=== PATIENT | female | born 1975 | race Caucasian/White ===

== ENCOUNTER 2016-11-27 08:37 | Day surgery (SDC) | payer OTHER ==
[2016-11-27] VITALS (12 sets, daily range): BP systolic 98–126; BP diastolic 43–68; PULSE 60–94; RESP 12–16; Ht 147.3 cm; Wt 54.4 kg
[~2016-11-27] VITALS: Ht 147.3 cm; Wt 54.4 kg
[~2016-11-27 08:37] MED LIST: CEFAZOLIN 2 GM/50 ML (PMX) 50 ML IVPB SCH; SOD CHLORIDE 0.9% 1,000 ML IV SCH
[2016-11-27] MEDS ORDERED: TRAM50TA2 PO (10:00)
[2016-11-27] MEDS ORDERED: FENTAnyl 50 MCG/ML VIAL ONE (11:54)
[2016-11-27] MEDS ORDERED: ROCURONIUM 50 MG INJ ONE (11:54)
[2016-11-27] MEDS ORDERED: DEXAMETHASONE 4 MG/ML 1 ML INJ ONE (11:54)
[2016-11-27] MEDS ORDERED: PROPOFOL 20 ML ONE (11:54)
[2016-11-27] MEDS ORDERED: ONDANSETRON 4 MG INJ ONE (11:54)
[2016-11-27] MEDS ORDERED: MIDAZOLAM 1 MG/ML 2 ML INJ ONE (11:54)
[2016-11-27] MEDS ORDERED: PROPOFOL 100 ML ONE (11:54)
[2016-11-27] MEDS ORDERED: HYDROmorphONE (0.2 MG/ML) 10ML SYG IV PRN ×2 (12:30)
[2016-11-27] MEDS ORDERED: DIPHENHYDRAMINE 50 MG INJ IV PRN (12:30)
[2016-11-27] MEDS ORDERED: EPHEDrine SULFATE 50 MG/5 ML SYG IV PRN (12:30)
[2016-11-27] MEDS ORDERED: LABETALOL HCL 20MG INJ IV PRN (12:30)
[2016-11-27] MEDS ORDERED: ONDANSETRON 4 MG INJ IV PRN (12:30)
[2016-11-27] MEDS ORDERED: MIDAZOLAM 1 MG/ML 2 ML INJ IV PRN (12:30)
[2016-11-27] MEDS ORDERED: ALBUTEROL 0.5% (NEB) 2.5 MG/0.5 ML AMP INH ONE (12:30)
[2016-11-27] MEDS ORDERED: EPHEDrine SULFATE 50 MG/5 ML SYG ONE (12:33)
[2016-11-27] MEDS ORDERED: MEPERIDINE 25 MG INJ IV ONE (13:30)
[2016-11-27] MEDS ORDERED: HYDROCODONE/APAP (10/325) TAB PO ONE (13:30)
[2016-11-27] MEDS ORDERED: MEPERIDINE 25 MG INJ ONE (13:31)
[2016-11-27] MEDS: HYDROmorphONE (0.2 MG/ML) 10ML SYG IV PRN ×2 (13:36→13:56)
--- NOTE | 2016-11-27 15:26 | OPR ---
DATE OF OPERATION: 11/27/2016 PREOPERATIVE DIAGNOSIS: Left intergluteal mass, rule out sarcoma. POSTOPERATIVE DIAGNOSIS: Left intergluteal mass, rule out sarcoma. OPERATION PERFORMED: Resection of left gluteal mass. ANESTHESIA: General. ANESTHESIOLOGIST: LUIS MUELLER MD. SURGEON: Conrad Ramos MD. SOUND SYSTEM INSTALLER: KRYSTLE BROUSSARD MD, MD. INDICATIONS FOR PROCEDURE: The patient is a 41-year-old female presenting with an enlarging mass in the left gluteal region. ACT PET scan was performed which revealed a large necrotic mass deep to t he gluteus otto muscle and interdigitating within the fibers of it. The patient was counseled as to need for resection. She consented and was scheduled for surgery. DESCRIPTION OF PROCEDURE: The patient was brought to the operating theater, placed under general en dotracheal tube anesthesia. She was then put in the prone position. The left gluteal region was pr epped and draped in usual sterile fashion. A transverse incision was made directly over the palpabl e mass. Subcutaneous tissue was dissected with cautery until the fibers of the gluteus otto coul d be visualized. The muscle was split in the direction of the fibers, interdigitating deep within t he muscle and extending down to what appeared to be fascia was a large mass with cystic components. It was meticulously dissected from surrounding tissues down to its origin and transected. 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 The mass was then sent fo permanent pathologic analysis. The base where the mass had been transected was further ablated wi th cautery. Wound was irrigated. Minimal bleeding was controlled with cautery. A #10 Portuguese Jacks on-Veliz drain was then brought through the lateral aspect of the left gluteal region, cut to size a nd laid deep within the resection bed. It was secured in place with 2-0 nylon in standard fashion a nd the skin was then reapproximated with 4-0 Vicryl suture in subcuticular fashion. Benzoin and Kleber ri-Strips were applied. Patient tolerated procedure well. Estimated blood loss was 30 mL. There w ere no complications and the patient was transported in stable condition to the recovery room. Dictated By: CONRAD RAMOS MD TL/NTS Conf#: [id number] DID#: [id number]
== END 2016-11-27 16:27 | disposition home or self-care (01) ==
LOC: SDS 08:37
PROVIDERS: ATTEND Surgery Surgical Oncology
DX: D23.5 Other benign neoplasm of skin of trunk (principal)
CPT/HCPCS: 11406; 84703; 88307; 88331; J1100; J1170; J2175; J2250; J2405; J3010

== ENCOUNTER 2016-11-29 20:42 | Inpatient (IN) | payer OTHER ==
[~2016-11-29] VITALS: Ht 147.3 cm; Wt 53.8 kg
[~2016-11-29 20:42] MED LIST changes: -CEFAZOLIN 2 GM/50 ML (PMX) 50 ML IVPB SCH; -SOD CHLORIDE 0.9% 1,000 ML IV SCH; +TRAM50TA2 PO
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
--- NOTE | 2016-11-29 23:46 | RADRPT ---
PROCEDURE: XR Chest. CLINICAL INDICATION: Syncope. TECHNIQUE: Single frontal chest x-ray. COMPARISON: None. FINDINGS: The cardiomediastinal silhouette is unremarkable. The lungs are clear. No focal infiltrate is seen. There is no pleural effusion. There is no pneumothorax. The osseous structures are unremarkable. IMPRESSION: 1. No active disease. RPTAT: HMVK .Bryce Dixon MD, Date Time Electronically viewed and signed by .Bryce Dixon MD, on 11/29/2016 23:46 .K/
[2016-11-30 00:01] LABS: CHLORIDE 99 mmol/L (97-110); SODIUM 138 mmol/L (135-144)
[2016-11-30 00:02] LABS: POTASSIUM 4.3 mmol/L (3.5-5.1)
[2016-11-30 00:04] LABS: ANION GAP 15 (8-16); CARBON DIOXIDE 28 mmol/L (21-31); CREATININE 0.66 mg/dl (0.44-1.00); INR 0.9; PROTIME 12.1 Sec (12.2-14.2); PT RATIO 0.9
[2016-11-30 00:05] LABS: BLOOD UREA NITROGEN 22 mg/dl (7-20); CALCIUM 8.8 mg/dl (8.4-10.2); GLUCOSE 106 mg/dl (70-220); PARTIAL THROMBOPLASTIN TIME 24.4 Sec (25.0-35.0)
[2016-11-30 00:22] LABS: TROPONIN-I < 0.012 ng/ml (0.00-0.12)
[2016-11-30] MEDS ORDERED: SOD CHLORIDE 0.9% 1,000 ML IV ONE (00:30)
[2016-11-30 00:46] LABS: BASOPHILS % 0.4 % (0.0-2.0); EOSINOPHILS # 0.1 10^3/ul (0.0-0.5); EOSINOPHILS % 0.6 % (0.0-7.0); HEMATOCRIT 37.9 % (37.0-47.0); HEMOGLOBIN 12.9 g/dl (12.0-16.0); LYMPHOCYTES # 1.5 10^3/ul (0.8-2.9); LYMPHOCYTES % 16.2 % (15.0-51.0); MEAN CORPUSCULAR HEMOGLOBIN 31.5 pg (29.0-33.0); MEAN CORPUSCULAR VOLUME 92.4 fl (82.0-101.0); MEAN PLATELET VOLUME 9.9 fl (7.4-10.4); MONOCYTE # 0.8 10^3/ul (0.3-0.9); MONOCYTES % 8.9 % (0.0-11.0); NEUTROPHIL # 6.6 10^3/ul (1.6-7.5); NEUTROPHILS % 73.5 % (39.0-77.0); PLATELET COUNT 269 10^3/UL (140-440)
[2016-11-30 00:58] LABS: D-DIMER < 220.00 ng/ml (<460)
--- NOTE | 2016-11-30 00:59 | RADRPT ---
PROCEDURE: CT BRAIN WITHOUT CONTRAST CLINICAL INDICATION: 41-year-old female with syncope. TECHNIQUE: The study was performed utilizing a [employer] VCT 64-slice CT scanner. Direct axia l sections were obtained from the foramen magnum to the vertex without the use of intravenous contra st material. Sagittal and coronal reformations were obtained. Automated exposure control and iterat federica reconstruction techniques were utilized for this examination. The images were viewed on a PACS workstation. CTD/vol = 51.1 mGy; Total Exam DLP = 817.8 mGy-cm. COMPARISON: None. FINDINGS: The ventricles have a normal size, shape and position. There is no evidence for mass effect or midl ine shift. There are no intracranial areas of abnormal attenuation. There is no evidence for acute intra or extra-axial blood. The bony calvarium is intact. The partially visualized paranasal sinuse s and mastoid air cells are without significant abnormal soft tissue. IMPRESSION: Unremarkable noncontrast CT scan of the brain. .Cedrick Little MD, MD Date Time Electronically viewed and signed by .Cedrick Little MD, MD on 11/30/2016 00:59 .M/
[2016-11-30 12:28] VITALS: TEMP 96.7
--- NOTE | 2016-11-30 14:38 | RADRPT ---
PROCEDURE: US Carotids. CLINICAL INDICATION: Syncope TECHNIQUE: Multiple sonographic of the carotid arteries were obtained utilizing sanchez scale imaging . Color and Doppler imaging was performed. The images were reviewed on a PACS workstation. COMPARISON: No prior studies are available for comparison. FINDINGS: Location Right Left CCA 79 cm/sec 112 cm/sec Prox ICA 57 cm/sec 65 cm/sec Mid ICA 80 cm/sec 73 cm/sec Dist ICA 50 cm/sec 97 cm/sec ECA 91 cm/sec 85 cm/sec ICA/CCA 1.0 1.2 Antegrade flow is seen within the vertebral arteries bilaterally. No significant plaque is seen with in the carotid system bilaterally. No hemodynamically significant stenosis or occlusion is identifi ed. IMPRESSION: 1. No evidence for hemodynamically significant stenosis - validated velocity measurements with angio graphic measurements, velocity criteria are extrapolated from diameter data as defined by the Societ y of Radiologists in Ultrasound Consensus Conference Radiology 2003; 229;340-346. This study does i ndirectly reference the measurement of the distal ICA diameter as the denominator for stenosis measu rement. 2. Antegrade flow seen within the vertebral arteries bilaterally. SRU Consensus Conference Criteria for the Diagnosis of Carotid Artery Stenosis Degree of Stenosis, % ICA PSV, cm/sec Plaque Estimate, % ICA/CCA PSV Ratio Normal <125 None <2.0 <50 <125 <50 <2.0 50 69 125-230 >50 2.0-4.0 >70 but less than near occlusion >230 >50 <4.0 Near occlusion High, low, or undetectable Visible Variable Total occlusion Undetectable Visible, no detectable lumen Not applicable *Cartoid artery stenosis: sanchez-scale and Doppler US diagnosis. Society of Radiologists in Ultrasound Consensus Conference. Radiology 2003; 229: 340-346 RPTAT: JJ .Saul Batista MD, Date Time Electronically viewed and signed by .Saul Batista MD, on 11/30/2016 14:38 .A/
[2016-11-30 15:15] VITALS: BP 111/52; RESP 20
[2016-11-30 15:23] VITALS: Ht 147.3 cm; Wt 53.8 kg
[2016-11-30 16:16] VITALS: PULSE 61
[2016-11-30] MEDS ORDERED: ACETAMINOPHEN 325 MG TAB PO PRN ×2 (17:00→19:30)
[2016-11-30] MEDS: SOD CHLORIDE 0.9% 1,000 ML IV SCH (17:23)
[2016-11-30] MEDS: HYDROCODONE/APAP (5/325) TAB PO PRN (18:07)
[2016-11-30] MEDS ORDERED: SOD CHLORIDE 0.9% 1,000 ML IV SCH (19:26)
--- NOTE | 2016-11-30 19:27 | QN ---
Documentation Comment hp done JEN VICTORIA MD Nov 30, 2016 19:27
[2016-11-30] MEDS ORDERED: NACL 0.9% 3 ML SYG IV SCH (19:30)
[2016-11-30] MEDS ORDERED: ONDANSETRON 4 MG INJ IV PRN (19:30)
[2016-11-30] MEDS ORDERED: HYDROCODONE/APAP (5/325) TAB PO PRN (19:30)
[2016-11-30] MEDS ORDERED: DOCUSATE SODIUM 100 MG CAP PO PRN (19:30)
[2016-11-30 20:00] VITALS: BP 113/58; PULSE 63; RESP 20
[2016-11-30 20:52] VITALS: PULSE 62
--- NOTE | 2016-11-30 22:41 | RADRPT ---
Echocardiogram Report ADDENDUM Patient Name: CORDELL MONROE Gender: Female Date: 1975 Study Date: 30-Nov-2016 County Assessor: Jairo Gore [facility] Location: 5564 Ref. Physician: JEN VICTORIA Quality: Adequate Procedures: Transthoracic echocardiogram with complete 2D, M-Mode, and doppler examination. Indications: Syncope. 2D/M Mode Doppler Measurement Value Normal Ranges Measurement Value Normal Ranges LVIDd 2D 4.7 3.5 - 5.6 cm AV Peak Jakob 1.2 m/sec LVIDs 2D 3.3 2.1 - 4.1 cm AV Peak PG 6.0 mmHg LVPWd 2D 0.8 0.6 - 1.1 cm LVOT Peak Jakob 0.7 m/sec IVSd 2D 0.8 0.6 - 1.1 cm LVOT Peak PG 2.0 mmHg AoR Diam 2D 2.6 2.0 - 3.7 cm MV E Peak Jakob 0.8 m/sec EDV 2D 102.6 cm3 MV A Peak Jakob 0.5 m/sec ESV 2D 37.1 cm3 MV E/A 1.5 LA Dimen 2D 2.7 2.3 - 4.0 cm MV Decel Time 195 msec MV Decel Karnes 4 MV E/A 1.5 TR Peak Jakob 2.3 m/sec TR Peak PG 20.3 mmHg RVSP 23.0 mmHg Findings Left Ventricle: Lower limits of normal systolic function. Normal left ventricular cavity size. Normal left ventricular wall thickness. Ejection fraction is visually estimated at 50 %. Tissue Doppler/Mitral Doppler indices are within normal limits. Right Ventricle: Normal right ventricular size. Normal right ventricular systolic function. Left Atrium: The left atrium is normal in size. Right Atrium: The right atrium is normal in size. Mitral Valve: Normal appearance and function of the mitral valve with trace physiologic regurgitation. Aortic Valve: Normal appearance of the aortic valve. No significant aortic stenosis or insufficiency. Tricuspid Valve: Normal appearance of the tricuspid valve. Estimated peak PA systolic pressure 23 mmHg. There is trace tricuspid regurgitation. Pulmonic Valve: Normal pulmonic valve appearance. Pericardium: Normal pericardium with no significant pericardial effusion. Aorta: Normal aortic root. IVC: Normal size and normal respiratory collapse consistent with normal right atrial pressure. Conclusions 1.Lower limits of normal systolic function. Normal left ventricular cavity size. Normal left ventricular wall thickness. Ejection fraction is visually estimated at 50 %. Tissue Doppler/Mitral Doppler indices are within normal limits. 2.Normal appearance and function of the mitral valve with trace physiologic regurgitation. 3.Normal appearance of the tricuspid valve. Estimated peak PA systolic pressure 23 mmHg. There is trace tricuspid regurgitation. Electronically Signed By: Gregorio Tomas 30-Nov-2016 23:10:19 -0800 [ADDENDUM] Patient Name: CORDELL MONROE Study Date: 30-Nov-2016 [id number]
--- NOTE | 2016-11-30 23:12 | CONS ---
DATE OF ADMISSION: 11/30/2016 DATE OF CONSULTATION: 11/30/2016 TYPE OF CONSULTATION: Cardiology. REASON FOR CONSULTATION: Bradycardia, syncope, assess for cardiac etiology. REQUESTING PHYSICIAN: Dr. Jurgen Victoria HISTORY OF PRESENT ILLNESS: Ms. Jauregui is a 41-year-old female with a history of gluteal mass, st atus post recent resection in the last week with drain still in place, who states that she was in he r usual state of health post surgery and went to take a shower and before actually getting in the ower had blurred vision, began to feel diaphoretic and had chills and felt as if she was going to pa ss out and sank to the ground. The patient subsequently was brought here to the emergency departmen , where upon arrival temperature 98.1, blood pressure 141/65, pulse 77, respiratory rate 18, satura ting 98%. The patient's labs revealed a white cell count of 9.0, hemoglobin 12.9, platelet count of 269. Sodium 138, potassium 4.3, creatinine ____, BUN 22. Troponin negative. INR 0.9. The patien t underwent a chest x-ray revealing no acute cardiopulmonary abnormalities. The patient underwent a head CT revealing unremarkable noncontrast CT scan of the head and carotid Doppler that revealed no evidence of hemodynamically significant stenosis, antegrade flow seen in the vertebral arteries kay aterally. The patient does not have an electrocardiogram in the chart for my review at this time. The patient subsequently has been admitted to the floor and since admit to floor has been monitored on telemetry with some episodes of sinus bradycardia to the 50s. The patient at this time denies ch est pain, shortness of breath. PAST MEDICAL HISTORY: As above in HPI. MEDICATIONS CURRENTLY IN HOSPITAL: 1. Protonix 40 mg IV daily. 2. Tylenol p.r.n. 3. IV fluid hydration at 50 mL an hour. ALLERGIES: NO KNOWN DRUG ALLERGIES. SOCIAL HISTORY: No tobacco. Social ETOH. No illicit drug use. FAMILY HISTORY: Negative for sudden cardiac or early CAD. REVIEW OF SYSTEMS: As above in HPI. CONSTITUTIONAL: No fevers, chills. PULMONARY: No current shortness of breath. CARDIOVASCULAR: No current chest pain. Bradycardia. GASTROINTESTINAL: No vomiting. GENITOURINARY: No hematuria. MUSCULOSKELETAL: Status post resection of a fatty mass from buttocks region. PHYSICAL EXAMINATION: VITAL SIGNS: Temperature 98.4, blood pressure 111/52, pulse of 59, respiratory rate 20, saturating 99%. GENERAL: The patient is alert, awake. No acute distress. NECK: ____. CHEST: Fair air movement throughout. HEART: Bradycardic, regular rhythm. Normal S1, S2. I/ systolic murmur. Nondisplaced PMI. ABDOMEN: Positive bowel sounds, soft. EXTREMITIES: No pitting edema. Pulses 1+ bilaterally at posterior tibial. BACK: Additionally noted for sutures with drain in place. LABORATORY DATA: As above in HPI. No further labs for my review at this time. IMAGING STUDIES: As above in HPI. No further imaging studies for my review at this time. ELECTROCARDIOGRAM: No electrocardiograms for my review at this time. IMPRESSION: 1. Syncope, assess for cardiac etiology. 2. Bradycardia, assess for more significant bradyarrhythmias, may be associated with the patient's syncopal episode. 3. Hypotension, borderline. 4. Status post recent surgery for removal of a fatty mass, likely lipoma. RECOMMENDATIONS: 1. At this time would maintain patient on telemetry monitoring to follow rhythm and rate closely. 2. Would check a 2D echocardiogram to further assess patient's ejection fraction, wall motion, rule out any major valve abnormalities. 3. Would check a TSH, ensure subclinical hypothyroidism is not contributing to the patient's border line bradycardia. 4. Continue the patient's IV fluid hydration and would check orthostatics to be sure that orthostas is did not contribute to the patient's bradycardia. 5. Check a fasting lipid panel for general risk stratification and initiate lipid-lowering medicati on as necessary. 6. Will additionally check serial EKGs to assess for significant ongoing changes and complete a rul e-out for myocardial infarction, ensure that the patient's syncopal episode was not due to any acute coronary syndrome such as acute myocardial infarction. Thank you for allowing me to take part in the care of this patient. I will continue to follow along very closely with you with further recommendations to be made as the patient progresses through her inpatient hospital clinical course. Dictated By: ALLISON YU/JOHN Conf#: [id number] DID#: [id number] CC: JURGEN VICTORIA MD;*EndCC*
--- NOTE | 2016-11-30 23:34 | HP ---
DATE OF ADMISSION: 11/30/2016 HISTORY OF PRESENT ILLNESS: The patient is a 41-year-old female who was recently discharged from this hospital with a diagnosis of . The patient was seen by Dr. Ramos and patient went home. Patient has infection of the left gluteal mass, was discharged home and patient was taking a shower and patient began feeling dizzy and passed out while standing and taking a walk to take a shower. The patient had a surgery done on November 27. The patient discharged on November 28 and took shower on November 29 and had those symptoms and patient presented with the above complaint. The patient denies any chest pain or palpitations right now. The patient still has a NORA drainage in the left hip area. Blood pressure 111/52, pulse 61, hematocrit 37.9. The patient had a carotid duplex scan done, shows carotid artery stenosis, no evidence of stenosis. The patient also had a CT of the brain, shows unremarkable noncontrast CT of the brain. The patient had a chest x-ray. No active disease and the patient was going to be monitored for further management. PAST MEDICAL HISTORY: Left hip gluteal mass status post surgery and NORA drainage. ALLERGY HISTORY: NEGATIVE. FAMILY HISTORY: Negative. SOCIAL HISTORY: Negative. MEDICATIONS AT HOME: Patient is on: 1. Tylenol. 2. Hydrocodone 3. Protonix. REVIEW OF SYSTEMS HEENT: As mentioned above. RESPIRATORY: Unremarkable. CARDIOVASCULAR: Unremarkable. ABDOMEN: Unremarkable. EXTREMITIES: Left hip pain. CENTRAL NERVOUS SYSTEM: Unremarkable. PHYSICAL EXAMINATION: GENERAL: The patient is awake and alert. VITAL SIGNS: Pulse 60, blood pressure 111/52. HEAD: Atraumatic, normocephalic. Pupils equal, reactive to light. NECK: Supple. No JVD. LUNGS: Clear. CARDIOVASCULAR: S1, S2 normal. ABDOMEN: Soft, nontender. Bowel sounds present. No palpable mass or hepatosplenomegaly. EXTREMITIES: There is no cyanosis, clubbing, edema. CENTRAL NERVOUS SYSTEM: The patient is awake, alert. No focal deficit. MUSCULOSKELETAL: Left gluteal area NORA drain is noted. No discharge noted at this point. IMPRESSION: 1. Status post syncope, possible vasovagal. 2. The patient is status post left hip gluteal mass removed. PLAN: To rule out ischemic heart disease. Follow recommendation from cardiology. Dr. Felix has been called. Continue to give this patient pain medication, IV fluid. Orders were done. Dictated By: JEN VICTORIA MD BS/JOHN Conf#: [id number] DID#: [id number] MTDD
[2016-12-01] VITALS (9 sets, daily range): BP systolic 108–129; BP diastolic 50–60; PULSE 54–72; RESP 18–20
--- NOTE | 2016-12-01 01:00 | CONS ---
DATE OF ADMISSION: 11/30/2016 DATE OF CONSULTATION: 11/30/2016 TYPE OF CONSULTATION: Neurological. Thank you, Dr. Abarca, for your kind referral for evaluation of syncope. 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 She was discharged home next day. The patient is taking tramadol for pain control. Yesterd ay, 2 days after the surgery, the patient was told that she would be able to a shower as prior to th is she did not have any shower since the surgery. The patient went to the restroom and felt dizzy w ith dimming lights and weakness. She sat on the floor and passed out for a short period of time. S he felt dizzy after she recuperated from the syncope. On admission to the hospital, a CAT scan of t he head did not show any acute abnormality as well as carotid ultrasound. Her labs show normal CBC and basic metabolic panel with exception of BUN 22 and creatinine 0.66. PT 12, PTT 24. Currently she is put on Protonix, [place] for pain control, and she is being hydrated with normal sali ne. She has no complaints currently, no dizziness. PAST MEDICAL HISTORY: As above. ALLERGIES: NONE. SOCIAL HISTORY: No alcohol, tobacco, drug use. FAMILY HISTORY: Not contributory. REVIEW OF SYSTEMS: All pertinent positives included in the above history of present illness. No pr ior history of syncopes nor seizures. PHYSICAL EXAMINATION: VITAL SIGNS: Temperature 98.3, pulse 61, respirations 20, blood pressure 111/52. HEENT: Normocephalic, atraumatic head. NECK: No carotid bruits. No thyromegaly. LUNGS: Clear to auscultation bilaterally. CARDIAC: Normal cardiac rhythm and sounds. ABDOMEN: Soft, nontender. EXTREMITIES: No cyanosis, clubbing or edema. NEUROLOGIC: She is awake, alert and oriented x3 with fluent speech. Cranial nerve examination show s intact visual cooper bilaterally. Pupils reactive from 3 to 2 mm bilaterally. Extraocular moveme nts intact without nystagmus. Preserved facial strength and sensation. Tongue is in midline. [place] te elevates symmetrically. Motor strength examination preserved in all extremities. Normal bulk, t one and strength. Sensory examination intact to light touch and pain. Deep tendon reflexes 2+ thro ughout. Downgoing toes bilaterally. Coordination preserved on egqtaj-im-[id number] testing. No dysmet john or tremor. Gait was not assessed. IMPRESSION: Status post orthostatic syncope in a 41-year-old lady with recent 3-day-old surgery for excision of a gluteal mass. Etiology of syncope likely vasovagal secondary to orthostatic changes. She is a mildly dehydrated given BUN to creatinine ratio, and also pain could contribute to the sy ncopal episode. Continue current treatment with hydration, proper pain control. The patient is on telemetry so all possible dysrhythmias could be picked up. Thank you very much for this interesting consultation. No other suggestions for patient's managemen t. Dictated By: IMER JEFFRIES/JOHN Conf#: [id number] DID#: [id number]
[2016-12-01] MEDS: HYDROCODONE/APAP (5/325) TAB PO PRN ×2 (03:37→11:25)
[2016-12-01] MEDS ORDERED: PANTOPRAZOLE (EC) 40 MG TAB PO SCH ×2 (06:00)
[2016-12-01 07:22] LABS: ADD SCAN DIFF NO
[2016-12-01 07:34] LABS: BASOPHILS % 0.3 % (0.0-2.0); EOSINOPHILS # 0.2 10^3/ul (0.0-0.5); EOSINOPHILS % 2.7 % (0.0-7.0); HEMATOCRIT 33.8 % (37.0-47.0); HEMOGLOBIN 11.3 g/dl (12.0-16.0); LYMPHOCYTES # 1.8 10^3/ul (0.8-2.9); LYMPHOCYTES % 24.7 % (15.0-51.0); MEAN CORPUSCULAR HEMOGLOBIN 31.5 pg (29.0-33.0); MEAN CORPUSCULAR HGB CONC 33.4 g/dl (32.0-37.0); MEAN CORPUSCULAR VOLUME 94.2 fl (82.0-101.0); MEAN PLATELET VOLUME 9.8 fl (7.4-10.4); MONOCYTE # 0.7 10^3/ul (0.3-0.9); MONOCYTES % 9.4 % (0.0-11.0); NEUTROPHIL # 4.7 10^3/ul (1.6-7.5); NEUTROPHILS % 62.6 % (39.0-77.0); PLATELET COUNT 236 10^3/UL (140-415); RED BLOOD COUNT 3.59 10^6/ul (4.20-5.40); RED CELL DISTRIBUTION WIDTH 13.2 % (11.5-14.5); WHITE BLOOD COUNT 7.5 10^3/ul (4.8-10.8)
[2016-12-01 08:07] LABS: CHOL/HDL RATIO 2.8 RATIO
[2016-12-01 08:12] LABS: ALBUMIN 3.1 g/dl (3.3-4.9)
[2016-12-01 08:13] LABS: POTASSIUM 4.2 mmol/L (3.5-5.1)
[2016-12-01 08:15] LABS: BILIRUBIN,INDIRECT 0.2 mg/dl (0-1.1); BILIRUBIN,TOTAL 0.2 mg/dl (0.2-1.3); CREATININE 0.63 mg/dl (0.44-1.00)
[2016-12-01 08:16] LABS: ALBUMIN/GLOBULIN RATIO 1.19; CALCIUM 8.3 mg/dl (8.4-10.2); TOTAL PROTEIN 5.7 g/dl (6.1-8.1)
[2016-12-01] MEDS: SOD CHLORIDE 0.9% 1,000 ML IV SCH (12:19)
--- NOTE | 2016-12-01 13:54 | CONS ---
Date/Time of Note Date/Time of Note DATE: 12/01/16 TIME: 13:52 Assessment/Plan Assessment/Plan Additional Assessment/Plan 1. Syncope, assess for cardiac etiology- HR lowest at 49 - no pauses - doubt bradycardia related syncope. ECHO EF 55%. 2. Bradycardia, assess for more significant bradyarrhythmias, may be associated with the patient's syncopal episode. NO indication for pacer now. 3. Hypotension, borderline - stable, OK to hydrate as needed. 4. Status post recent surgery for removal of a fatty mass, likely lipoma. Primary team follows. Consultation Date/Type/Reason Admit Date/Time Nov 30, 2016 at 02:07 Initial Consult Date 24 HR Interval Summary Free Text/Dictation NO acute change - no tachy-stephanie arrhythmia on tele. ROS: No fever, no chills, no nausea, no vomiting, no diarrhea/constipation No recent weight changes No chest pain, no PND, no orthopnea No dizziness, blurred vision No thirst, no heat or cold intolerance Exam/Review of Systems Vital Signs Vitals Vital Signs Date Time Temp Pulse Resp B/P Pulse Ox O2 Delivery O2 Flow Rate FiO2 12/01/16 12:15 60 12/01/16 08:55 97.9 18 129/60 98 12/01/16 05:00 Room Air Intake and Output 11/30/16 11/30/16 12/01/16 15:00 23:00 07:00 Intake Total 240 ml 120 ml 900 ml Output Total 50 ml 1720 ml Balance 190 ml 120 ml -820 ml Exam General: WN/WD/NAD, AOx3 HEENT: Unicetric/atraumatic/EOMI (follow commands) NECK: JVD elevated, no thyromegaly Lymph: no lymphadenopathy HEART: regular with no S3, II/ systolic murmur at apex LUNGS: Coarse sounds ABD: soft, NT, ND, +BS : Intact Neuro: non focal SKIN: chronic changes EXT: trace edema Results Result Diagram: 12/01/16 0610 12/01/16 0640 Results 24 hrs Laboratory Tests Test 11/30/16 18:34 12/01/16 00:53 12/01/16 06:00 12/01/16 06:10 Troponin I < 0.010 < 0.010 < 0.012 Basophils # 0.0 Basophils % 0.3 Eosinophils # 0.2 Eosinophils % 2.7 Hematocrit 33.8 L Hemoglobin 11.3 L Lymphocytes # 1.8 Lymphocytes % 24.7 Mean Corpuscular Hemoglobin 31.5 Mean Corpuscular Hemoglobin Concent 33.4 Mean Corpuscular Volume 94.2 Mean Platelet Volume 9.8 Monocytes # 0.7 Monocytes % 9.4 Neutrophils # 4.7 Neutrophils % 62.6 Nucleated Red Blood Cells # 0.0 Nucleated Red Blood Cells % 0.0 Platelet Count 236 Red Blood Count 3.59 L Red Cell Distribution Width 13.2 White Blood Count 7.5 Test 12/01/16 06:40 Alanine Aminotransferase (ALT/SGPT) 30 Albumin 3.1 L Albumin/Globulin Ratio 1.19 Alkaline Phosphatase 65 Anion Gap 15 Aspartate Amino Transf (AST/SGOT) 25 Blood Urea Nitrogen 17 Calcium Level 8.3 L Carbon Dioxide Level 25 Chloride Level 106 Cholesterol Level 124 Cholesterol/HDL Ratio 2.8 Creatinine 0.63 Direct Bilirubin 0.00 Globulin 2.60 Glucose Level 75 HDL Cholesterol 43 Indirect Bilirubin 0.2 LDL Cholesterol, Calculated 67 Potassium Level 4.2 Sodium Level 142 Total Bilirubin 0.2 Total Protein 5.7 L Triglycerides Level 69 Medications Medications Current Medications Acetaminophen/ Hydrocodone Bitart ([place] (5/325)) 1 tab Q6H PRN PO MODERATE TO SEVERE PAIN Last administered on 12/01/16 11:25; Admin Dose 1 TAB; Start at 17:00 Pantoprazole (Protonix Tab) 40 mg DAILY@06 PO Last administered on 12/01/16 06 :18; Admin Dose 40 MG; Start 12/01/16 at 06:00 Acetaminophen 650 mg 650 mg Q6H PRN PO PAIN AND OR ELEVATED TEMP; Start at 17:00 Sodium Chloride (NS) 1,000 ml @ 50 mls/hr Q20H IV Last administered on 17:23; Admin Dose 50 MLS/HR; Start 11/30/16 at 17:00 Ondansetron HCl (Zofran Inj) 4 mg Q6H PRN IV NAUSEA AND/OR VOMITING; Start at 19:30 Docusate Sodium (Colace) 100 mg Q12H PRN PO CONSTIPATION; Start 11/30/16 at 19: 30 IVAN JOHNSON MD Dec 01, 2016 13:54
--- NOTE | 2016-12-01 18:11 | PDOCDIS ---
Discharge Instructions CONDITION Patient Condition: Stable ACTIVITY: Activity Restrictions: Slowly Increase Activity FOLLOW UP/APPOINTMENTS Appointments f/u own pcp [address] randhawa 1 wk JEN VICTORIA MD Dec 01, 2016 18:11
[2016-12-01] MEDS ORDERED: DOCU-216 PO (18:13)
[2016-12-01] MEDS ORDERED: TRAM50TA2 PO (18:13)
[2016-12-01] MEDS ORDERED: ACET325T33 PO (18:13)
--- NOTE | 2016-12-05 17:44 | RADRPT ---
Vent Rate: 53 bpm RR Interval: 0 msec [place] Interval: 122 msec QRS Duration: 94 msec QT Interval: 444 msec QTC Interval: 416 msec P-R-T [place]: 42 - 32 - 41 degrees Sinus bradycardia Otherwise normal ECG Electronically Signed By: Je Tan [id number]
== END 2016-12-01 18:50 | disposition home or self-care (01) | DRG 312 ==
LOC: E/R 20:42 → MS4 11-30 02:07
PROVIDERS: ADMIT Internal Medicine Nephrology; ATTEND Internal Medicine Nephrology
DX: R55 Syncope and collapse (principal); I10 Essential (primary) hypertension; R00.1 Bradycardia, unspecified
CPT/HCPCS: 36415; 70450; 71010; 80048; 80053; 80061; 82962; 84484; 85025; 85378; 85610; 85730; 93005; 93306; 93880; J7030